=== PATIENT | female | born 1950 | race Caucasian/White ===

== ENCOUNTER → 2018-10-06 | Outpatient (CLI) | payer MEDICARE ==
[~2018-10-06] MED LIST: OMNIPAQUE 350 MG/ML, 100ML BOTTLE ONE
== END | disposition home or self-care (01) ==
LOC: CFH 12:14
PROVIDERS: ATTEND Nurse Practitioner Family
DX: K76.89 Other specified diseases of liver (principal); M51.37 Other intervertebral disc degeneration, lumbosacral region; R19.8 Other specified symptoms and signs involving the digestive system and abdomen; R10.13 Epigastric pain
CPT/HCPCS: 74177; Q9967